=== PATIENT | female | born 1985 | race Caucasian/White ===

== ENCOUNTER 2018-01-04 05:26 | Day surgery (SDC) | payer MEDICAID ==
[2018-01-04] MEDS: LACTATED RINGER'S 1,000 ML IV ×6 (06:44→22:42)
[2018-01-04] MEDS: CEFAZOLIN 2 GM/50 ML (PMX) 50 ML (FOR WT < 120 KG) IVPB (06:44)
[2018-01-04] MEDS ORDERED: ROCURONIUM 50 MG INJ (07:00)
[2018-01-04] MEDS ORDERED: SUCCINYLCHOLINE CHLORIDE 100 MG/5 ML SYG IV (07:53)
[2018-01-04] MEDS ORDERED: MIDAZOLAM 1 MG/ML 2 ML INJ (07:53)
[2018-01-04] MEDS ORDERED: LIDOCAINE 2% (SDV) 5 ML INJ (07:53)
[2018-01-04] MEDS ORDERED: FENTAnyl 50 MCG/ML VIAL (07:53)
[2018-01-04] MEDS ORDERED: PROPOFOL 20 ML (07:53)
[2018-01-04] MEDS ORDERED: DIPHENHYDRAMINE 50 MG INJ IV (08:00)
[2018-01-04] MEDS: CEFAZOLIN 2 GM/50 ML (PMX) 50 ML IVPB (08:00)
[2018-01-04] MEDS ORDERED: FENTAnyl 50 MCG/ML VIAL IV ×3 (08:00)
[2018-01-04] MEDS ORDERED: PROCHLORPERAZINE 10 MG INJ IV (08:00)
[2018-01-04] MEDS ORDERED: HYDROmorphONE 1 MG/5 ML IV SYRINGE IV ×3 (08:00)
[2018-01-04] MEDS ORDERED: ROPIVACAINE 0.5 % 30 ML VIAL (08:04)
[2018-01-04] MEDS ORDERED: FAMOTIDINE 20 MG INJ (08:38)
[2018-01-04] MEDS ORDERED: ONDANSETRON 4 MG INJ (08:38)
[2018-01-04] MEDS ORDERED: DEXAMETHASONE 4 MG/ML 1 ML INJ (08:38)
[2018-01-04] MEDS ORDERED: ACETAMINOPHEN 1000MG/100ML IV 100 ML (08:40)
[2018-01-04] MEDS: BUPIVACAINE 0.25% (MPF) 30 ML INJ (08:47)
[2018-01-04] MEDS ORDERED: NEOSTIGMINE 3 MG/3 ML SYRINGE (09:45)
[2018-01-04] MEDS ORDERED: GLYCOPYRROLATE 0.4 MG INJ (09:45)
[2018-01-04] MEDS: ONDANSETRON 4 MG INJ IV (10:10)
[2018-01-04] MEDS: MEPERIDINE 25 MG INJ IV (10:10)
[2018-01-05] MEDS: LACTATED RINGER'S 1,000 ML IV ×2 (04:55→06:00)
[2018-01-05 11:53] LABS: ADD MAN DIFF? NO
[2018-01-05 11:55] LABS: BASOPHILS % 0.4 % (0.0-2.0); EOSINOPHILS # 0.1 10^3/ul (0.0-0.5); EOSINOPHILS % 0.6 % (0.0-7.0); HEMATOCRIT 37.4 % (37.0-47.0); HEMOGLOBIN 12.1 g/dl (12.0-16.0); LYMPHOCYTES # 3.3 10^3/ul (0.8-2.9); LYMPHOCYTES % 31.8 % (15.0-51.0); MEAN CORPUSCULAR HEMOGLOBIN 27.8 pg (29.0-33.0); MEAN CORPUSCULAR HGB CONC 32.4 g/dl (32.0-37.0); MEAN PLATELET VOLUME 9.9 fl (7.4-10.4); MONOCYTE # 0.8 10^3/ul (0.3-0.9); MONOCYTES % 7.7 % (0.0-11.0); NEUTROPHIL # 6.1 10^3/ul (1.6-7.5); NEUTROPHILS % 58.6 % (39.0-77.0); PLATELET COUNT 366 10^3/UL (140-415); RED BLOOD COUNT 4.35 10^6/ul (4.20-5.40); RED CELL DISTRIBUTION WIDTH 13.2 % (11.5-14.5)
[2018-01-05 11:55] LABS: WHITE BLOOD COUNT 10.4 10^3/ul (4.8-10.8)
[2018-01-05 12:16] LABS: ANION GAP 10 (8-16); BLOOD UREA NITROGEN 13 mg/dl (7-20); CALCIUM 8.6 mg/dl (8.4-10.2); CARBON DIOXIDE 29 mmol/L (21-31); CHLORIDE 106 mmol/L (97-110); CREATININE 0.68 mg/dl (0.44-1.00); GLUCOSE 128 mg/dl (70-220); POTASSIUM 3.6 mmol/L (3.5-5.1); SODIUM 141 mmol/L (135-144)
== END 2018-01-05 17:30 | disposition home or self-care (01) ==
LOC: SDS 05:26 → MS1 11:50
DX: Z30.2 Encounter for sterilization (principal)
CPT/HCPCS: 58661; 80048; 84703; 85025; 86850; 86900; 86901; 88302